=== PATIENT | male | born 1980 | race Caucasian/White ===

== ENCOUNTER 2017-03-26 21:39 | Emergency (ER) | payer SELFPAY ==
--- NOTE | 2017-03-26 21:50 | NUR ---
CALLED FOR PT NO ANSWER LWBT
[2017-03-26] MEDS ORDERED: [UNRECOGNIZED DRUG - REMARK] (22:48)
[2017-03-26] MEDS ORDERED: FLUT9.9S NS (22:48)
== END 2017-03-26 21:50 | disposition left against medical advice (07) ==
LOC: EDBD → ER 21:39
DX: Z53.21 Procedure and treatment not carried out due to patient leaving prior to being seen by health care provider (principal)

== ENCOUNTER 2017-03-26 22:28 | Emergency (ER) | payer SELFPAY ==
[~2017-03-26] VITALS: Ht 180.3 cm; Wt 131.5 kg
[2017-03-26] MEDS ORDERED: FLUT9.9S NS (22:48)
[2017-03-26] MEDS ORDERED: [UNRECOGNIZED DRUG - REMARK] (22:48)
[2017-03-26] MEDS ORDERED: NITROGLYCERIN 0.4 MG/TAB BOTTLE SL ONE ×2 (23:00→23:06)
[2017-03-26 23:10] LABS: CREATININE 1.1 mg/dL (0.6-1.3); POTASSIUM 3.8 mmol/L (3.5-5.1)
[2017-03-26 23:22] LABS: BILIRUBIN,DIRECT 0.1 mg/dL (0.0-0.2); BILIRUBIN,TOTAL 0.3 mg/dL (0.2-1.0); TOTAL PROTEIN, SERUM 7.2 g/dL (6.4-8.2)
[2017-03-26 23:27] LABS: BASOPHILS % (AUTO) 0.5 % (0.0-2.0); EOSINOPHILS # (AUTO) 0.2 K/uL (0.0-0.7); EOSINOPHILS % (AUTO) 1.7 % (0.0-7.0); HEMATOCRIT 42.3 % (40-50); HEMOGLOBIN 14.4 G/DL (14.0-18.0); LYMPHOCYTES % (AUTO) 32.4 % (20.5-51.5); MEAN CORPUSCULAR HEMOGLOBIN 26.3 UUG (27.0-31.0); MEAN CORPUSCULAR HGB CONC 34 g/dL (32.0-37.0); MEAN CORPUSCULAR VOLUME 77.2 FL (82.0-92.0); MONOCYTES # (AUTO) 0.7 K/UL (0.1-1.30); NEUTROPHILS # (AUTO) 5.5 K/UL (1.8-8.9); NEUTROPHILS % (AUTO) 58.4 % (38.5-71.5); PLATELET COUNT (AUTO) 205 K/UL (150-450); RED BLOOD CELL COUNT(AUTO) 5.48 MIL/UL (4.7-6.1); WHITE BLOOD COUNT (AUTO) 9.4 K/UL (4.0-11.2)
--- NOTE | 2017-03-27 00:15 | NUR ---
PT INTIALLY C/O 7/10 CP PRIOR TO 1ST NTG SL, THEN CP WENT TO 4/10 AFTER IST NTG SL, THEN TO 3/10 AFTER 2ND, AND THEN 2/10 AFTER 3RD SL. PTHAS BEEN MEDICALLYEVALUATED AND WAS D/C'D HOME, PT HAD SALINE LOCK D/C'D INTACT, COPIES OF ALL TESTS AND EKG GIVEN. PT GOT DRESSED AND AMBULATED W/O DIFF, TOOK ALL BELONGINGS, AMBULATED W/O DIFF.
[2017-03-27 01:37] VITALS: BP 128/94
== END 2017-03-27 00:15 | disposition home or self-care (01) ==
LOC: EDBD 22:28 → ER 22:28
DX: R07.9 Chest pain, unspecified (principal); E78.00 Pure hypercholesterolemia, unspecified
CPT/HCPCS: 36415; 71010; 80048; 80076; 83690; 83880; 84484; 85025; 85730; 93005; 99285; A4663; 70030-TC

== ENCOUNTER 2018-05-20 01:04 | Emergency (ER) | payer SELFPAY ==
[~2018-05-20] VITALS: Ht 180.3 cm; Wt 131.5 kg
[~2018-05-20 01:04] MED LIST: FLUT9.9S NS; [UNRECOGNIZED DRUG - REMARK]
[2018-05-20 01:57] LABS: BASOPHILS # (AUTO) 0.1 K/uL (0.0-8.0); BASOPHILS % (AUTO) 0.9 % (0.0-2.0); EOSINOPHILS # (AUTO) 0.2 K/uL (0.0-0.7); EOSINOPHILS % (AUTO) 1.9 % (0.0-7.0); HEMATOCRIT 40.7 % (36.7-47.1); HEMOGLOBIN 14.2 g/dL (12.5-16.3); LYMPHOCYTES # (AUTO) 2.7 K/uL (20.0-40.0); LYMPHOCYTES % (AUTO) 33.4 % (20.5-51.5); MEAN CORPUSCULAR HEMOGLOBIN 26.9 uug (23.8-33.4); MEAN CORPUSCULAR HGB CONC 35 g/dL (32.5-36.3); MEAN CORPUSCULAR VOLUME 77.3 fL (73.0-96.2); MONOCYTES # (AUTO) 0.6 K/uL (2.0-10.0); MONOCYTES % (AUTO) 6.9 % (0.0-11.0); NEUTROPHILS # (AUTO) 4.6 K/uL (1.8-8.9); NEUTROPHILS % (AUTO) 56.9 % (38.5-71.5); PLATELET COUNT (AUTO) 194 K/uL (152-348); RED BLOOD CELL COUNT(AUTO) 5.27 MIL/uL (4.06-5.63)
[2018-05-20 02:04] LABS: CREATININE 1.2 mg/dL (0.6-1.3); POTASSIUM 3.8 mmol/L (3.5-5.1)
--- NOTE | 2018-05-20 02:34 | NUR ---
Patient discharged to home in stable conditon. Written and verbal after care instructions given. Patient verbalizes understanding of instructions.
== END 2018-05-20 02:35 | disposition home or self-care (01) ==
LOC: ER 01:05
DX: R07.89 Other chest pain (principal); E78.00 Pure hypercholesterolemia, unspecified; Z79.51 Long term (current) use of inhaled steroids; Z79.899 Other long term (current) drug therapy
CPT/HCPCS: 36415; 70030-TC; 85025; 93005; A4663

== ENCOUNTER 2018-09-10 16:00 | Emergency (ER) | payer OTHER ==
[~2018-09-10] VITALS: Ht 180.3 cm; Wt 131.5 kg
--- NOTE | 2018-09-10 16:43 | NUR ---
PT WAS EVALUATED BY DR HADDAD. PT WAS D/C'd TO HOME. D/C INSTRUCTIONS GIVEN TO THE PT.
[2018-09-10 16:49] VITALS: BP 136/87
== END 2018-09-10 16:43 | disposition home or self-care (01) ==
LOC: ER 16:02
DX: M54.12 Radiculopathy, cervical region (principal); E78.5 Hyperlipidemia, unspecified; Z79.899 Other long term (current) drug therapy
CPT/HCPCS: 93005; A4663

== ENCOUNTER 2020-06-27 15:05 | Emergency (ER) | payer OTHER ==
[~2020-06-27] VITALS: Ht 180.3 cm; Wt 133.8 kg
[~2020-06-27 15:05] MED LIST changes: +FLUT16SP16 NS; -FLUT9.9S NS
[2020-06-27] MEDS ORDERED: HYDROCODONE/APAP 10-325 MG TABLET PO ONE (15:45)
[2020-06-27] MEDS ORDERED: HYDROCODONE/APAP 10-325 MG TABLET ONE (15:45)
--- NOTE | 2020-06-27 15:49 | NUR ---
PT TO XRAY VIA W/C, NAD NOTED.
--- NOTE | 2020-06-27 16:32 | NUR ---
PATIENT STATES PAIN HAS DIMINISHED. DC, RX (INCLUDING NORCO PRECAUTIONS) GIVEN AND EXPLAINED TO PATIENT WHO STATES HE UNDERSTANDS ALL INSTRUCTIONS
== END 2020-06-27 16:34 | disposition home or self-care (01) ==
LOC: ER 15:05
DX: S16.1XXA Strain of muscle, fascia and tendon at neck level, initial encounter (principal); S39.012A Strain of muscle, fascia and tendon of lower back, initial encounter; S09.90XA Unspecified injury of head, initial encounter; V43.52XA Car driver injured in collision with other type car in traffic accident, initial encounter; Y92.89 Other specified places as the place of occurrence of the external cause; Y99.8 Other external cause status; E66.01 Morbid (severe) obesity due to excess calories; Z68.41 Body mass index [BMI] 40.0-44.9, adult; E78.5 Hyperlipidemia, unspecified
CPT/HCPCS: 70450; 72100; 72125; A4663

== ENCOUNTER 2022-11-25 20:40 | Emergency (ER) | payer OTHER ==
--- NOTE | 2022-11-25 21:15 | NUR ---
PT CALLED WITH NO ANSWER.
--- NOTE | 2022-11-25 21:30 | NUR ---
PT CALLED / NO ANSWER.
--- NOTE | 2022-11-25 22:00 | NUR ---
PT CALLED /NO ANSWER.
== END 2022-11-25 22:00 | disposition left against medical advice (07) ==
LOC: ER 20:41
DX: Z53.21 Procedure and treatment not carried out due to patient leaving prior to being seen by health care provider (principal)

== ENCOUNTER 2022-12-06 19:34 | Emergency (ER) | payer OTHER ==
[~2022-12-06] VITALS: Ht 180.3 cm; Wt 131.5 kg
[2022-12-06] MEDS ORDERED: DULOXETINE (19:48)
--- NOTE | 2022-12-06 20:00 | NUR ---
Patient in room with no distress noted. Requesting for ct of abdomen.
[2022-12-06 21:19] LABS: HEMATOCRIT 41.3 % (36.7-47.1); MEAN CORPUSCULAR HEMOGLOBIN 26.1 uug (23.8-33.4); MEAN CORPUSCULAR VOLUME 78.1 fL (73.0-96.2); PLATELET COUNT (AUTO) 213 K/uL (152-348)
[2022-12-06 21:29] LABS: CREATININE 1.2 mg/dL (0.6-1.3); POTASSIUM 4.1 mmol/L (3.5-5.1)
[2022-12-06 21:34] LABS: BILIRUBIN,DIRECT 0.1 mg/dL (0.0-0.2); BILIRUBIN,TOTAL 0.2 mg/dL (0.2-1.0); TOTAL PROTEIN, SERUM 7.5 g/dL (6.4-8.2)
[2022-12-06] MEDS ORDERED: IOHEXOL 300MG/ML 100 ML INFUS..BTL ONE (21:52)
[2022-12-06] MEDS ORDERED: SWABABLE VALVE TRANSFER SET EA MC ONE (21:52)
[2022-12-06] MEDS ORDERED: IV NORMAL SALINE 250 ML IV ONE (21:53)
--- NOTE | 2022-12-06 23:48 | NUR ---
IV removed. Catheter intact and site benign. Pressure and 4x4 gauze applied to site. No bleeding noted.
--- NOTE | 2022-12-07 00:03 | NUR ---
Patient discharged to home in stable condition with family taking patient home. Written and verbal after care instructions given. Patient verbalizes understanding of instructions. Stressed follow up or return to ER for worsening s/s.
[2022-12-07 00:06] VITALS: BP 144/82; TEMP 98.2; O2SAT 98
== END 2022-12-07 00:06 | disposition home or self-care (01) ==
LOC: ER 19:36
DX: R20.2 Paresthesia of skin (principal); K62.5 Hemorrhage of anus and rectum; E78.5 Hyperlipidemia, unspecified; Z79.899 Other long term (current) drug therapy
CPT/HCPCS: 99285; 70460; 80076; 80048; 83690; 85025; 36415; 72125; 74177; Q9967; A4663

== ENCOUNTER 2023-09-16 18:13 | Emergency (ER) | payer OTHER ==
[~2023-09-16 18:13] MED LIST changes: +DULOXETINE; -FLUT16SP16 NS; -[UNRECOGNIZED DRUG - REMARK]
== END 2023-09-16 18:26 | disposition left against medical advice (07) ==
LOC: ER 18:15
DX: R20.0 Anesthesia of skin (principal); Z53.21 Procedure and treatment not carried out due to patient leaving prior to being seen by health care provider

== ENCOUNTER 2023-09-16 18:33 | Emergency (ER) | payer OTHER ==
[~2023-09-16] VITALS: Ht 180.3 cm; Wt 129.3 kg
[2023-09-16] MEDS ORDERED: ASPIRIN 81 MG TAB.CHEW ONE (19:00)
[2023-09-16] MEDS: ASPIRIN 81 MG TAB.CHEW PO ONE (19:02)
[2023-09-16 19:06] LABS: BASOPHILS # (AUTO) 0.1 K/UL (0.0-0.2); BASOPHILS % (AUTO) 0.9 % (0.0-2.0); EOSINOPHILS # (AUTO) 0.1 K/uL (0.0-0.7); EOSINOPHILS % (AUTO) 1.7 % (0.0-7.0); HEMATOCRIT 42.1 % (36.7-47.1); HEMOGLOBIN 14.2 g/dL (12.5-16.3); LYMPHOCYTES # (AUTO) 2.8 K/uL (0.8-4.8); LYMPHOCYTES % (AUTO) 35.6 % (20.5-51.5); MEAN CORPUSCULAR HEMOGLOBIN 25.8 uug (23.8-33.4); MEAN CORPUSCULAR HGB CONC 34 g/dL (32.5-36.3); MEAN CORPUSCULAR VOLUME 76.5 fL (73.0-96.2); MONOCYTES # (AUTO) 0.3 K/uL (0.1-1.30); MONOCYTES % (AUTO) 3.6 % (0.0-11.0); NEUTROPHILS # (AUTO) 4.6 K/uL (1.8-8.9); NEUTROPHILS % (AUTO) 58.2 % (38.5-71.5); PLATELET COUNT (AUTO) 195 K/uL (152-348); RED BLOOD CELL COUNT(AUTO) 5.51 MIL/uL (4.06-5.63); RED CELL DISTRIBUTION WIDTH 15.3 % (12.1-16.2); WHITE BLOOD COUNT (AUTO) 7.9 K/uL (3.6-10.2)
[2023-09-16 19:11] LABS: DIFFERENTIAL COMMENT 1
[2023-09-16 19:14] LABS: CALCIUM 8.5 mg/dL (8.5-10.1); CARBON DIOXIDE 25 mmol/L (21-32); CHLORIDE 106 mmol/L (98-107); CREATININE 1.2 mg/dL (0.6-1.3); GLUCOSE 137 mg/dL (74-106); POTASSIUM 3.4 mmol/L (3.5-5.1); SODIUM SERUM 142 mmol/L (136-145); UREA NITROGEN, BLOOD 23 mg/dL (7-18)
[2023-09-16 19:28] LABS: ALANINE AMINOTRANSFERASE 38 U/L (16-63); ALBUMIN 3.5 g/dL (3.4-5.0); ALKALINE PHOSPHATASE 131 U/L (50-136); ASPARTATE AMINOTRANSFERASE 17 U/L (15-37); BILIRUBIN,DIRECT 0.1 mg/dL (0.0-0.2); BILIRUBIN,TOTAL 0.5 mg/dL (0.2-1.0); NT-PRO BNP 23 pg/mL (0-125); TOTAL PROTEIN, SERUM 7.5 g/dL (6.4-8.2)
[2023-09-16] MEDS ORDERED: SIMETHICONE 80 MG TAB.CHEW ONE (20:12)
[2023-09-16] MEDS: SIMETHICONE 80 MG TAB.CHEW PO ONE (20:14)
[2023-09-16 20:17] VITALS: BP 123/71; TEMP 98.5; O2SAT 99
== END 2023-09-16 20:17 | disposition home or self-care (01) ==
LOC: ER 18:34
DX: M25.512 Pain in left shoulder (principal); R20.0 Anesthesia of skin; E78.5 Hyperlipidemia, unspecified; E66.9 Obesity, unspecified; Z68.39 Body mass index [BMI] 39.0-39.9, adult; Z98.890 Other specified postprocedural states; Z79.899 Other long term (current) drug therapy
CPT/HCPCS: 36415; 71045; 84484; 85025; 93005; A4606; A4663

== ENCOUNTER 2025-01-01 20:25 | Emergency (ER) | payer OTHER ==
[~2025-01-01] VITALS: Ht 180.3 cm; Wt 130.6 kg
[2025-01-01] MEDS: KETOROLAC TROMETHAMINE 30 MG INJ IM ONE (21:37)
[2025-01-01] MEDS: HYDROCODONE/APAP 5-325MG TABLET PO ONE (21:38)
[2025-01-01 22:30] VITALS: BP 131/71
[2025-01-01 23:16] VITALS: BP 128/72; TEMP 98.1; O2SAT 98
== END 2025-01-01 23:17 | disposition home or self-care (01) ==
LOC: ER 20:25
DX: S20.211A Contusion of right front wall of thorax, initial encounter (principal); S80.02XA Contusion of left knee, initial encounter; S80.01XA Contusion of right knee, initial encounter; S09.8XXA Other specified injuries of head, initial encounter; R05.9 Cough, unspecified; R03.0 Elevated blood-pressure reading, without diagnosis of hypertension; E78.5 Hyperlipidemia, unspecified; Z88.7 Allergy status to serum and vaccine; Z87.19 Personal history of other diseases of the digestive system; V43.52XA Car driver injured in collision with other type car in traffic accident, initial encounter; Y93.89 Activity, other specified; Y92.488 Other paved roadways as the place of occurrence of the external cause; Y99.8 Other external cause status
CPT/HCPCS: 99284; 71101; 73560 ×2; 96372; J1885; A4606; A4663

== ENCOUNTER 2025-01-02 06:37 | Emergency (ER) | payer OTHER ==
[~2025-01-02] VITALS: Ht 180.3 cm; Wt 130.6 kg
[2025-01-02 06:40] VITALS: BP 139/59
[2025-01-02] MEDS ORDERED: ACETAMINOPHEN 500 MG TABLET ONE (07:57)
[2025-01-02] MEDS ORDERED: ONDANSETRON ODT 4 MG TAB.RAPDIS ONE (07:58)
[2025-01-02] MEDS: ACETAMINOPHEN 500 MG TABLET PO ONE (08:00)
[2025-01-02] MEDS: ONDANSETRON ODT 4 MG TAB.RAPDIS SL ONE (08:00)
[2025-01-02 08:48] VITALS: BP 139/59; TEMP 98.2; O2SAT 98
== END 2025-01-02 08:49 | disposition home or self-care (01) ==
LOC: ER 06:55
DX: S09.8XXA Other specified injuries of head, initial encounter (principal); H53.8 Other visual disturbances; E78.5 Hyperlipidemia, unspecified; Z88.7 Allergy status to serum and vaccine; Z87.19 Personal history of other diseases of the digestive system; V43.52XA Car driver injured in collision with other type car in traffic accident, initial encounter; Y93.89 Activity, other specified; Y92.488 Other paved roadways as the place of occurrence of the external cause; Y99.8 Other external cause status
CPT/HCPCS: 70450; A4606; A4663; A9150; Q0162